=== PATIENT | male | born 1955 | race Caucasian/White ===

== ENCOUNTER 2018-11-22 08:28 | Day surgery (SDC) | payer OTHER ==
[~2018-11-22 08:28] MED LIST: ACETAZOLAMIDE 250 MG PO ONE
[2018-11-22] MEDS: PHENYLEPHRINE HCL 10% OPHTHAL SOL ONE ×2 (08:47→09:01)
[2018-11-22] MEDS: TETRACAINE HCL 0.5 % 1 DROP SOL ONE ×3 (08:47→09:46)
[2018-11-22] MEDS: CYCLOPENTOLATE 1% SOL ONE ×2 (08:47→09:01)
[2018-11-22] MEDS: KETOROLAC 0.5% OPTH 60 DROP SOL ONE ×2 (08:48→09:02)
[2018-11-22 08:59] VITALS: O2SAT 99
[2018-11-22] MEDS ORDERED: FENTANYL 100MCG/2ML SOL ONE (09:26)
[2018-11-22] MEDS ORDERED: MIDAZOLAM 2 MG/2 ML SOL ONE (09:26)
[2018-11-22] MEDS ORDERED: BSS 500 ML 500 ML IR ONE (09:43)
[2018-11-22] MEDS ORDERED: POVIDONE IODINE 5% SOL ONE (09:43)
[2018-11-22] MEDS: LIDOCAINE HCL 1% MPF 30 SOL ONE ×2 (09:53→09:54)
[2018-11-22] MEDS: IMPRIMIS ONE ×2 (09:54→10:06)
[2018-11-22 10:18] VITALS: BP 121/72; PULSE 90; RESP 20; TEMP 97.4
== END 2018-11-22 10:32 | disposition home or self-care (01) | DRG 125 ==
LOC: SURG 08:28
PROVIDERS: ATTEND Ophthalmology
DX: H25.89 Other age-related cataract (principal)
CPT/HCPCS: J2250; J3010; A9270-GY; J2001